=== PATIENT | male | born 1970 | race Caucasian/White ===

== ENCOUNTER 2016-11-18 23:08 | Emergency (ER) | payer SELFPAY ==
[~2016-11-18 23:08] MED LIST: Triple Antibiotic Oint 1 GM Packet ONE
[2016-11-18] MEDS ORDERED: Naproxen 500 MG TAB ONE (23:45)
[2016-11-18] MEDS ORDERED: Sulfameth/Trimethoprim DS 800-160mg TAB ONE (23:45)
[2016-11-18] MEDS ORDERED: Cephalexin 500 MG CAP ONE (23:45)
--- NOTE | 2016-11-18 23:48 | RAD ---
THREE VIEWS OF THE RIGHT FOOT 11/18/16 COMPARISON: None. HISTORY: Swelling and pain to the right foot. FINDINGS: Three views of the right foot shows no evidence of acute fracture or dislocation. There are destruct rekha changes involving the second toe metatarsophalangeal joint. Soft tissue swelling of the distal f oot is seen. IMPRESSION: 1. No evidence of acute fracture dislocation. 2. Destructive changes involving the second toe metatarsophalangeal joint. This could be second tylor to prior history of trauma. This could also be secondary to previous infection of this joint wit h surrounding destructive changes of the bones. POS: [facility]
== END 2016-11-19 00:07 | disposition home or self-care (01) ==
LOC: MADERS 23:08
DX: L02.611 Cutaneous abscess of right foot (principal); L03.115 Cellulitis of right lower limb; F17.210 Nicotine dependence, cigarettes, uncomplicated
CPT/HCPCS: 87070; 87077; 87186; 87205

== ENCOUNTER 2017-05-31 12:23 | Emergency (ER) | payer SELFPAY ==
[2017-05-31] MEDS ORDERED: Ibuprofen 600 MG TAB ONE (13:12)
[2017-05-31] MEDS ORDERED: Adacel (T-DAP) 0.5 ML VIAL ONE (13:30)
--- NOTE | 2017-05-31 13:41 | RAD ---
RIGHT HAND THREE VIEWS: HISTORY: Trauma to hand. FINDINGS: There is a boxer's type fracture of the fifth metacarpal. No additional fractures are seen. IMPRESSION: Fifth metacarpal fracture. POS: [facility]
[2017-05-31] MEDS ORDERED: Acetaminophen/Codeine 30-300mg Tablet ONE (13:52)
== END 2017-05-31 13:49 | disposition home or self-care (01) ==
LOC: MADERS 12:23
DX: S62.316A Displaced fracture of base of fifth metacarpal bone, right hand, initial encounter for closed fracture (principal); F17.210 Nicotine dependence, cigarettes, uncomplicated; W18.30XA Fall on same level, unspecified, initial encounter
CPT/HCPCS: 90471; 90715

== ENCOUNTER 2019-07-17 07:59 | Emergency (ER) | payer SELFPAY ==
[2019-07-17] MEDS ORDERED: Ondansetron ODT 4 MG TAB ONE (08:25)
[2019-07-17] MEDS ORDERED: Ketorolac Tromethamine 30 MG/ML VIAL ONE (08:25)
[2019-07-17] MEDS ORDERED: Multivit, Adult Inj 10 ML VIAL ONE (08:38)
[2019-07-17] MEDS ORDERED: Thiamine HCl 200 MG/2 ML VIAL ONE (08:38)
[2019-07-17] MEDS ORDERED: Mag-Al Plus 1200 MG/1200 MG/120 MG/30 ML UDCUP ONE ×2 (08:38→10:01)
[2019-07-17] MEDS ORDERED: Dextrose 5 %-0.45 % NaCl 1,000 ML ONE (08:38)
[2019-07-17 08:41] LABS: #Basophils 0.2 thou/uL (0.0-0.2); #Eosinphils 0.3 thou/uL (0.0-0.7); #Lymphocytes 2.7 thou/uL (1.20-3.40); #Monocytes 0.7 thou/uL (0.11-0.59); #Neutrophils 6.2 thou/uL (1.40-6.50); %Basophils 1.7 % (0.0-1.0); %Eosinophils 3.1 % (0.0-10.0); %Lymphocytes 26.6 % (21.0-51.0); %Monocytes 6.8 % (0.0-10.0); %Neutrophils 61.8 % (42.0-75.0); Hemoglobin 15.9 g/dL (14.0-18.0); Mean Corpuscular HGB CONC 31.1 g/dL (32.0-36.0); Mean Corpuscular Hemoglobin 30.4 pg (27.0-31.0); Mean Corpuscular Volume 97.7 fL (78.0-98.0); Mean Platelet Volume 8.2 fL (7.4-10.4); Platelet Count 260 thou/uL (130-400); RBC Distribution Width 12.9 % (11.5-14.5); Red Blood Cell (RBC) Count 5.22 mill/uL (4.70-6.10); White Blood Cell (WBC) Count 10.1 thou/uL (4.8-10.8)
[2019-07-17 08:56] LABS: ALT (SGPT) 28 U/L (8-55); AST (SGOT) 39 U/L (5-34); Albumin 4.2 g/dL (3.5-5.0); Alkaline Phosphatase 87 U/L (40-110); Anion Gap 12 mmol/L (10-20); BUN (Urea Nitrogen) 11 mg/dL (8.9-20.6); Bilirubin, Total 0.4 mg/dL (0.2-1.2); Calc. Creatinine Clearance 0 mL/min (70-130); Calcium 9.1 mg/dL (7.8-10.44); Carbon Dioxide 32 mmol/L (22-29); Chloride 98 mmol/L (98-107); Estimated GFR-MDRD 57; Glucose 99 mg/dL (70-105); Lipase 41 U/L (8-78); Potassium 4.3 mmol/L (3.5-5.1); Protein, Total 7.2 g/dL (6.0-8.3); Sodium 138 mmol/L (136-145)
[2019-07-17] MEDS ORDERED: Iopamidol 370 76% 100 ML VIAL ONE (09:47)
[2019-07-17] MEDS ORDERED: Lidocaine Viscous Sol 2% 15 ml UD Cup ONE (10:01)
--- NOTE | 2019-07-17 10:29 | CT ---
CT abdomen and pelvis with IV contrast: HISTORY: Abdominal pain COMPARISON: 06/15/2016 FINDINGS: A calcified granuloma in the left lung base is again seen. No calcified gallstones are seen. The live r, spleen, pancreas, adrenal glands and left kidney are normal. The small low-density lesion in the inferior pole of the right kidney is stable. No free air, free fluid or lymphadenopathy seen in the abdomen or pelvis. A normal-appearing appendix is present. There is sigmoid diverticulosis without evidence of diverticulitis. Vascular calcifications are present without evidence of aneurysmal dilatation of the abdominal aorta. Scleroti c focus likely due to bone island is stable in the left iliac bone. IMPRESSION: No acute findings.
== END 2019-07-17 10:35 | disposition home or self-care (01) ==
LOC: MADERS 07:59
DX: J11.1 Influenza due to unidentified influenza virus with other respiratory manifestations (principal); B34.9 Viral infection, unspecified; F17.210 Nicotine dependence, cigarettes, uncomplicated
CPT/HCPCS: 74177; 80053; 83690; 85025; J1885; J3411; J7042; Q0162; Q9967

== ENCOUNTER 2021-03-18 10:14 | Emergency (ER) | payer SELFPAY ==
[2021-03-18] MEDS ORDERED: Prochlorperazine 10 MG/2 ML VIAL ONE (10:33)
== END 2021-03-18 10:50 | disposition home or self-care (01) ==
LOC: MADERS 10:14
DX: A08.4 Viral intestinal infection, unspecified (principal); F17.210 Nicotine dependence, cigarettes, uncomplicated
CPT/HCPCS: 96372; 99283; J0780

== ENCOUNTER 2021-05-18 05:44 | Emergency (ER) | payer SELFPAY ==
[2021-05-18] MEDS ORDERED: HYDROcodone/Acetaminophen 10/325 mg Tablet ONE (06:58)
== END 2021-05-18 07:00 | disposition home or self-care (01) ==
LOC: MADERS 05:44
DX: S22.42XA Multiple fractures of ribs, left side, initial encounter for closed fracture (principal); I10 Essential (primary) hypertension; F17.210 Nicotine dependence, cigarettes, uncomplicated; W18.2XXA Fall in (into) shower or empty bathtub, initial encounter; Y92.002 Bathroom of unspecified non-institutional (private) residence as the place of occurrence of the external cause

== ENCOUNTER 2021-06-29 04:36 | Emergency (ER) | payer BC, SELFPAY ==
[2021-06-29] MEDS ORDERED: Sodium Chloride 0.9% 1,000 ML ONE (05:03)
[2021-06-29] MEDS ORDERED: Ondansetron PF 4 MG/2 ML Vial ONE (05:03)
[2021-06-29 05:08] LABS: #Basophils 0.2 thou/uL (0.0-0.2); #Eosinphils 0.5 thou/uL (0.0-0.7); #Lymphocytes 3.4 thou/uL (1.20-3.40); #Monocytes 0.8 thou/uL (0.11-0.59); #Neutrophils 5.8 thou/uL (1.40-6.50); %Basophils 2.3 % (0.0-1.0); %Lymphocytes 31.8 % (21.0-51.0); %Monocytes 7.4 % (0.0-10.0); %Neutrophils 53.5 % (42.0-75.0); Hemoglobin 14.8 g/dL (14.0-18.0); Mean Corpuscular HGB CONC 32.2 g/dL (32.0-36.0); Mean Corpuscular Hemoglobin 31.9 pg (27.0-31.0); Mean Corpuscular Volume 98.9 fL (78.0-98.0); Mean Platelet Volume 8.3 fL (7.4-10.4); Platelet Count 248 thou/uL (130-400); RBC Distribution Width 12.4 % (11.5-14.5); Red Blood Cell (RBC) Count 4.63 mill/uL (4.70-6.10); White Blood Cell (WBC) Count 10.8 thou/uL (4.8-10.8)
[2021-06-29 05:23] LABS: ALT (SGPT) 25 U/L (8-55); AST (SGOT) 31 U/L (5-34); Albumin 4.3 g/dL (3.5-5.0); Alkaline Phosphatase 97 U/L (40-110); Anion Gap 14 mmol/L (10-20); BUN (Urea Nitrogen) 10 mg/dL (8.4-25.7); Bilirubin, Total 0.4 mg/dL (0.2-1.2); Calc. Creatinine Clearance 0 mL/min (70-130); Calcium 9.6 mg/dL (7.8-10.44); Carbon Dioxide 28 mmol/L (22-29); Chloride 103 mmol/L (98-107); Globulin 3.2 g/dL (2.4-3.5); Glucose 94 mg/dL (70-105); Lipase 157 U/L (8-78); Potassium 4.5 mmol/L (3.5-5.1); Protein, Total 7.5 g/dL (6.0-8.3); Sodium 140 mmol/L (136-145)
[2021-06-29 05:30] LABS: Bilirubin Negative (Negative); Blood, Urine Negative (Negative); Clarity Clear (Clear); Glucose, Urine (Dipstick) Negative (Negative); Ketone, Urine Negative (Negative); Leukocyte Negative (Negative); Nitrite Negative (Negative); Protein, Urine (Dipstick) Trace mg/dL (Neg-Trace); pH, Urine 7.5 (5.0-9.0)
[2021-06-29] MEDS ORDERED: Iopamidol 370 76% 100 ML VIAL ONE (11:38)
== END 2021-06-29 06:18 | disposition home or self-care (01) ==
LOC: MADERS 04:36
DX: R10.9 Unspecified abdominal pain (principal); R11.10 Vomiting, unspecified; F17.210 Nicotine dependence, cigarettes, uncomplicated
CPT/HCPCS: 74177; 80053; 81003; 83605; 83690; 85025; 96374; J2405; J7050; Q9967

== ENCOUNTER 2021-07-13 12:37 | Emergency (ER) | payer BC ==
[2021-07-13] MEDS ORDERED: Sodium Chloride 0.9% 1,000 ML ONE ×2 (13:51→15:37)
[2021-07-13] MEDS ORDERED: methylPREDNISolone Sod Succ/PF 125 MG/2 ML VIAL ONE (13:51)
[2021-07-13] MEDS ORDERED: Ondansetron PF 4 MG/2 ML Vial ONE (13:51)
[2021-07-13 14:00] LABS: CK (CPK) 542 U/L (30-200); CRP (Inflammatory) Less than 0.50 mg/dL (= or < 0.5)
[2021-07-13 14:02] LABS: ALT (SGPT) 23 U/L (8-55); AST (SGOT) 34 U/L (5-34); Albumin 4.3 g/dL (3.5-5.0); Alkaline Phosphatase 96 U/L (40-110); Anion Gap 16 mmol/L (10-20); BUN (Urea Nitrogen) 11 mg/dL (8.4-25.7); Band 2 % (5-11); Bilirubin, Total 0.3 mg/dL (0.2-1.2); Calc. Creatinine Clearance 0 mL/min (70-130); Calcium 9.5 mg/dL (7.8-10.44); Carbon Dioxide 25 mmol/L (22-29); Chloride 102 mmol/L (98-107); Eosinophils 6 % (0-10); Globulin 2.9 g/dL (2.4-3.5); Glucose 67 mg/dL (70-105); Hemoglobin 13.6 g/dL (14.0-18.0); Lymphocytes 31 % (21-51); MDiff Complete? YES; Mean Corpuscular HGB CONC 32.4 g/dL (32.0-36.0); Mean Corpuscular Hemoglobin 32.1 pg (27.0-31.0); Mean Corpuscular Volume 98.9 fL (78.0-98.0); Mean Platelet Volume 8.5 fL (7.4-10.4); Monocytes 8 % (0-10); Neutrophil 53 % (42-75); Platelet Count 248 thou/uL (130-400); Potassium 4.5 mmol/L (3.5-5.1); Protein, Total 7.2 g/dL (6.0-8.3); RBC Distribution Width 12.4 % (11.5-14.5); Red Blood Cell (RBC) Count 4.26 mill/uL (4.70-6.10); Sodium 138 mmol/L (136-145); White Blood Cell (WBC) Count 10.6 thou/uL (4.8-10.8)
[2021-07-13 14:27] LABS: CKMB 9.1 ng/mL (0-6.6)
[2021-07-13 16:15] LABS: CKMB 8.5 ng/mL (0-6.6)
[2021-07-13 16:18] LABS: Lactic Acid 1.7 mmol/L (0.5-2.2)
[2021-07-14 00:48] LABS: SARS-CoV-2 PCR by NAA Not Detected (NotDetected)
== END 2021-07-13 17:43 | disposition home or self-care (01) ==
LOC: MADERS 12:37
DX: J44.1 Chronic obstructive pulmonary disease with (acute) exacerbation (principal); E86.0 Dehydration; R74.8 Abnormal levels of other serum enzymes; M62.82 Rhabdomyolysis; F17.210 Nicotine dependence, cigarettes, uncomplicated; Z20.822 Contact with and (suspected) exposure to COVID-19
CPT/HCPCS: 36415; 71045; 80053; 82550; 82553; 83605; 84484; 85025; 86140; 93005; 96374; 96375; J2405; J2930; J7050; U0003; U0005

== ENCOUNTER 2021-09-07 18:36 | Emergency (ER) | payer BC ==
[2021-09-07 21:03] LABS: #Basophils 0.2 thou/uL (0.0-0.2); #Eosinphils 0.4 thou/uL (0.0-0.7); #Lymphocytes 2.8 thou/uL (1.20-3.40); #Monocytes 0.6 thou/uL (0.11-0.59); #Neutrophils 8.8 thou/uL (1.40-6.50); %Basophils 1.6 % (0.0-1.0); %Eosinophils 3.3 % (0.0-10.0); %Lymphocytes 21.9 % (21.0-51.0); %Monocytes 4.6 % (0.0-10.0); %Neutrophils 68.5 % (42.0-75.0); Hemoglobin 15.8 g/dL (14.0-18.0); Mean Corpuscular HGB CONC 33.8 g/dL (32.0-36.0); Mean Corpuscular Hemoglobin 32.1 pg (27.0-31.0); Mean Corpuscular Volume 94.9 fL (78.0-98.0); Mean Platelet Volume 8.4 fL (7.4-10.4); Platelet Count 276 thou/uL (130-400); RBC Distribution Width 12.4 % (11.5-14.5); Red Blood Cell (RBC) Count 4.92 mill/uL (4.70-6.10); White Blood Cell (WBC) Count 12.9 thou/uL (4.8-10.8)
[2021-09-07 21:12] LABS: INR-International Normal Ratio 0.9; Prothrombin Time 12.5 sec (12.0-14.7)
[2021-09-07] MEDS ORDERED: Heparin 5,000 UNITS/ML VIAL ONE (21:19)
[2021-09-07] MEDS ORDERED: Heparin 25,000 units/D5W 500 ML ONE (21:19)
[2021-09-07 21:21] LABS: ALT (SGPT) 26 U/L (8-55); AST (SGOT) 40 U/L (5-34); Albumin 4.3 g/dL (3.5-5.0); Alkaline Phosphatase 125 U/L (40-110); Anion Gap 16 mmol/L (10-20); BUN (Urea Nitrogen) 11 mg/dL (8.4-25.7); Bilirubin, Total 0.3 mg/dL (0.2-1.2); Calc. Creatinine Clearance 0 mL/min (70-130); Calcium 9.6 mg/dL (7.8-10.44); Carbon Dioxide 27 mmol/L (22-29); Chloride 100 mmol/L (98-107); Globulin 3.2 g/dL (2.4-3.5); Glucose 94 mg/dL (70-105); Potassium 4.2 mmol/L (3.5-5.1); Protein, Total 7.5 g/dL (6.0-8.3); Sodium 139 mmol/L (136-145)
== END 2021-09-07 22:18 | disposition short-term general hospital (02) ==
LOC: MADERS 18:36
DX: M79.605 Pain in left leg (principal); R53.1 Weakness; F17.200 Nicotine dependence, unspecified, uncomplicated
CPT/HCPCS: 80053; 85025; 85610; 85730; 94760; 96365; 96376; J1644

== ENCOUNTER 2021-10-02 10:21 | Emergency (ER) | payer BC | END 2021-10-02 11:30 | disposition home or self-care (01) | LOC: MADERS 10:21 | DX: I10 Essential (primary) hypertension (principal); F17.200 Nicotine dependence, unspecified, uncomplicated | CPT/HCPCS: 99283 ==

== ENCOUNTER 2024-01-20 11:04 | Emergency (ER) | payer SELFPAY ==
[2024-01-20] MEDS ORDERED: Morphine 4 MG/ML VIAL ONE (11:34)
[2024-01-20 12:12] LABS: INR-International Normal Ratio 0.9; PTT 26.2 sec (22.9-36.1); Prothrombin Time 12.2 sec (12.0-14.7)
[2024-01-20 12:19] LABS: Anion Gap 18 mmol/L (10-20); BUN (Urea Nitrogen) 13 mg/dL (8.4-25.7); Calc. Creatinine Clearance 0 mL/min (70-130); Calcium 9.5 mg/dL (7.8-10.44); Carbon Dioxide 20 mmol/L (22-29); Chloride 103 mmol/L (98-107); Eosinophils 3 % (0-10); Estimated GFR 54; Glucose 102 mg/dL (70-105); Hematocrit 48.2 % (42.0-52.0); Hemoglobin 14.8 g/dL (14.0-18.0); Lymphocytes 18 % (21-51); MDiff Complete? YES; Manual Diff?? YES; Mean Corpuscular HGB CONC 30.8 g/dL (32.0-36.0); Mean Corpuscular Hemoglobin 30.4 pg (27.0-31.0); Mean Platelet Volume 8.5 fL (7.4-10.4); Monocytes 7 % (0-10); Neutrophil 60 % (42-75); Platelet Count 239 10x3/uL (130-400); Potassium 4.9 mmol/L (3.5-5.1); RBC Distribution Width 14.1 % (11.5-14.5); Reactive Lymphocytes 12 % (0-10); Red Blood Cell (RBC) Count 4.87 mill/uL (4.70-6.10); Sodium 136 mmol/L (136-145); White Blood Cell (WBC) Count 11.4 10x3/uL (4.8-10.8)
[2024-01-20 12:20] LABS: Platelet Adequacy Comment Appears Adequate; RBC Morph Comment Within Normal Limits
== END 2024-01-20 12:38 | disposition short-term general hospital (02) ==
LOC: MADERS 11:04
DX: I70.90 Unspecified atherosclerosis (principal); M79.675 Pain in left toe(s); F17.210 Nicotine dependence, cigarettes, uncomplicated
CPT/HCPCS: 36415; 80048; 83605; 85025; 85610; 85730; 96374; J2270